=== PATIENT | male | born 1975 | race African-American/Black ===

== ENCOUNTER 2023-06-15 12:23 | Emergency (ER) | payer MEDICAID ==
[~2023-06-15] VITALS: Ht 172.7 cm; Wt 108.9 kg
[2023-06-15 12:53] VITALS: BP 145/102; PULSE 98; RESP 20; TEMP 98; O2SAT 98
[2023-06-15] MEDS ORDERED: IBUP-2809 PO (13:50)
[2023-06-15] MEDS ORDERED: LIDO76.56 TP (13:50)
[2023-06-15 14:40] VITALS: BP 135/88; PULSE 78; RESP 18; TEMP 98.7; O2SAT 99
== END 2023-06-15 14:40 | disposition home or self-care (01) ==
LOC: MED 12:23
DX: K13.0 Diseases of lips (principal); Z79.899 Other long term (current) drug therapy
CPT/HCPCS: 99283